=== PATIENT | female | born 1960 | race Caucasian/White ===

== ENCOUNTER 2016-08-13 15:33 | Emergency (ER) | payer OTHER | END 2016-08-13 18:25 | disposition home or self-care (01) | LOC: ER1 15:33 | DX: S32.029A Unspecified fracture of second lumbar vertebra, initial encounter for closed fracture (principal); S46.912A Strain of unspecified muscle, fascia and tendon at shoulder and upper arm level, left arm, initial encounter; W18.09XA Striking against other object with subsequent fall, initial encounter; Z88.0 Allergy status to penicillin; I10 Essential (primary) hypertension; E11.40 Type 2 diabetes mellitus with diabetic neuropathy, unspecified; Z79.4 Long term (current) use of insulin; Z79.899 Other long term (current) drug therapy | CPT/HCPCS: 72128; 72131; 73030; 99284 ==

== ENCOUNTER 2016-09-03 19:30 | Emergency (ER) | payer OTHER | END 2016-09-04 | disposition home or self-care (01) | LOC: ER1 19:30 | DX: S46.912A Strain of unspecified muscle, fascia and tendon at shoulder and upper arm level, left arm, initial encounter (principal); W18.30XA Fall on same level, unspecified, initial encounter; Y92.009 Unspecified place in unspecified non-institutional (private) residence as the place of occurrence of the external cause; Z88.0 Allergy status to penicillin | CPT/HCPCS: 73030; 99283 ==

== ENCOUNTER → 2016-09-23 | Outpatient (CLI) | payer OTHER | LOC: KOH-I 09-19 11:45 | DX: E11.42 Type 2 diabetes mellitus with diabetic polyneuropathy (principal); E11.65 Type 2 diabetes mellitus with hyperglycemia; E78.2 Mixed hyperlipidemia; F41.1 Generalized anxiety disorder; I10 Essential (primary) hypertension; K21.9 Gastro-esophageal reflux disease without esophagitis; K31.84 Gastroparesis; M79.1 Myalgia; R23.8 Other skin changes; R53.83 Other fatigue; R93.7 Abnormal findings on diagnostic imaging of other parts of musculoskeletal system | CPT/HCPCS: 73221 ==